=== PATIENT | male | born 1990 | race African-American/Black ===

== ENCOUNTER 2022-04-09 12:40 | Emergency (ER) | payer SELFPAY ==
--- NOTE | ~2022-04-09 | XR_ITS ---
EXAMINATION: XR hand RT min 3V INDICATION: Right hand pain and injury TECHNIQUE: Four views of the right hand are obtained. COMPARISON: None available FINDINGS: There is a subacute, nearly completely healed distal shaft fracture of the fifth metacarpal with volar angulation. No acute fracture is identified. The joint spaces are normal. IMPRESSION: 1. Subacute, nearly healed distal shaft fracture of the fifth metacarpal with volar angulation. Reviewed, dictated and finalized at location B. ENT CASE COORDINATOR IMPRESSION: 1. Subacute, nearly healed distal shaft fracture of the fifth metacarpal with v olar angulation.
[2022-04-09 12:44] VITALS: BP 152/84; PULSE 89; RESP 16; TEMP 36.7; O2SAT 100
--- NOTE | 2022-04-09 14:34 | ED.GENADULT ---
HPI - General Adult General Chief complaint: Extremity Injury, Upper Stated complaint: right hand injury Time Seen by Provider: 04/09/22 13:42 History of Present Illness HPI narrative: 32-year-old male presented to the emergency department for evaluation of persistent right hand pain. Patient reports in February he got his hand injured by the harper of a trunk. Patient did not seek treatment for this injury. Patient states he has persisted to have right hand pain. Patient reports the pain is worsened in the morning and worsened with movement. 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 Review of Systems Review of Systems: CONSTITUTIONAL: Denies fever, chills, or sweats. EYES: Denies visual changes, redness, or discharge. ENT: Denies rhinorrhea, congestion, sore throat, or otalgia. CARDIOVASCULAR: Denies chest pain, palpitations, or edema. RESPIRATORY: Denies cough or dyspnea. GASTROINTESTINAL: Denies abdominal pain, nausea, vomiting, or diarrhea. GENITOURINARY: Denies dysuria or hematuria. SKIN: Denies rash or itching. MUSCULOSKELETAL: See HPI NEUROLOGIC: Denies headache, numbness, or weakness. Exam Narrative: APPEARANCE: Well appearing, no pain, no distress, well-nourished. HEAD: normocephalic, atraumatic. MUSCULOSKELETAL: Edema over the distal right fifth metacarpal, tenderness to palpation. Neurovascular intact. NEURO: Alert. Cranial nerves II through XII intact. Grossly intact SKIN: Warm, dry. Normal Color Course Course Emergency Course: X-ray showed a subacute nearly healed distal fracture of the fifth metacarpal with volar angulation. Patient was still having point tenderness to palpation and pains with movement. Patient was placed in a splint for comfort. Patient was encouraged of close follow-up with [facility]. Patient was advised on the risk of not having follow-up. All question concerns were addressed. Vital Signs Vital signs: Vital Signs Temperature 98.1 F 04/09/22 12:44 Pulse Rate 89 04/09/22 12:44 Respiratory Rate 16 04/09/22 12:44 Blood Pressure 152/84 H 04/09/22 12:44 Pulse Oximetry 100 04/09/22 12:44 Oxygen Delivery Room Air 04/09/22 12:44 Temperature 98.1 F 04/09/22 12:44 Pulse Rate 89 04/09/22 12:44 Respiratory Rate 16 04/09/22 12:44 Blood Pressure 152/84 H 04/09/22 12:44 Pulse Oximetry 100 04/09/22 12:44 Oxygen Delivery Room Air 04/09/22 12:44 Medical Decision Making Vital Signs Vital Signs: Vital Signs Temperature 98.1 F 04/09/22 12:44 Pulse Rate 89 04/09/22 12:44 Respiratory Rate 16 04/09/22 12:44 Blood Pressure 152/84 H 04/09/22 12:44 Pulse Oximetry 100 04/09/22 12:44 Oxygen Delivery Room Air 04/09/22 12:44 Temperature 98.1 F 04/09/22 12:44 Pulse Rate 89 04/09/22 12:44 Respiratory Rate 16 04/09/22 12:44 Blood Pressure 152/84 H 04/09/22 12:44 Pulse Oximetry 100 04/09/22 12:44 Oxygen Delivery Room Air 04/09/22 12:44 Imaging Data Radiologist's impression: Impressions Hand X-Ray 04/09/22 12:59 IMPRESSION: 1. Subacute, nearly healed distal shaft fracture of the fifth metacarpal with volar angulation. Discharge Plan Discharge Clinical Impression: Fracture of fifth metacarpal bone Patient Disposition: Home, Self-Care Condition: Stable Instructions: Antibiotic Form, Hand Fracture (DC), Splint Care (ED) Additional Instructions: Splint care as directed. Have close follow-up with the hand surgeon. If you have any worsening symptoms then please call or return to the emergency department. Follow-up/Referrals: Renan Ansari MD [Physician] - PHYSICIAN,[employer] [Primary Care Provider] -
== END 2022-04-09 15:07 | disposition home or self-care (01) ==
PROVIDERS: Emergency Provider Emergency Medicine
DX: S62.326A Displaced fracture of shaft of fifth metacarpal bone, right hand, initial encounter for closed fracture (principal); W23.0XXA Caught, crushed, jammed, or pinched between moving objects, initial encounter
CPT/HCPCS: 29125; 73130; 99284